=== PATIENT | male | born 1970 | race Caucasian/White ===

== ENCOUNTER 2025-09-20 17:50 | Emergency (ER) | payer SELFPAY ==
[2025-09-20 17:54] VITALS: BP 136/84; PULSE 116; RESP 24; TEMP 37.3; O2SAT 97; BMI 48.6
--- NOTE | 2025-09-20 19:02 | ED.GENADULT ---
HPI - General Adult General Date Seen: 09/20/25 Chief complaint: Shortness of Breath/Dyspnea Stated complaint: Shortness of breath Time Seen by Provider: 09/20/25 18:28 History of Present Illness HPI narrative: Patient is a 55-year-old man here with his for evaluation of shortness of breath. He tells me he 1st started to have trouble with his breathing back in January, when he noted more shortness of breath with exertion as well as wheezing. He was seen at an urgent care and then his primary doctor and was diagnosed as worsening asthma, does have a history of asthma but used an inhaler very sporadically. He says he was given an inhaler to use more regularly and felt improved. In the past couple of months he feels like it is not helping as much. Specifically over the last 3 weeks he has had more of a cough, has felt short of breath and congested in his chest. He does feel that he had an illness associated with this initially although those symptoms are largely improved. He continues to feel congested in his chest. He went to urgent care through [facility] today and had a chest x-ray done and was given prednisone and doxycycline for treatment of bronchitis. He received a call from the urgent care later in the day saying that his x-ray showed possible pulmonary hypertension and he was advised to come to the ER for emergent evaluation. He denies chest pain. He is significantly overweight. Does not smoke. Related Data Home Medications ?Medication ?Instructions ?Recorded ?Confirmed albuterol sulfate 90 mcg/actuation 1 - 2 puff inhalation Q4H PRN 09/20/25 09/20/25 aerosol inhaler wheezing fluticasone 250 mcg-salmeterol 50 1 ea inhalation BID 09/20/25 09/20/25 mcg/dose blistr powdr for inhalation (Wixela Inhub) Previous Rx's ?Medication ?Instructions ?Recorded furosemide 20 mg tablet (Lasix) 20 mg PO DAILY #7 tabs 09/20/25 Allergies Allergy/AdvReac Type Severity Reaction Status Date / Time cat dander Allergy Unknown Verified 09/20/25 18:02 dog dander Allergy Unknown Verified 09/20/25 18:02 grass pollen Allergy Unknown Verified 09/20/25 18:02 nut - unspecified Allergy Unknown Verified 09/20/25 18:02 tree nut Allergy Unknown Verified 09/20/25 18:02 Review of Systems Status of ROS: Reports: 6 or more systems reviewed and unremarkable except as noted in History and below Exam Narrative: Exam Narrative: Vital signs reviewed In general, alert, nontoxic mid age male. Breathing comfortably. Speaks in full sentences. Head: Normocephalic, atraumatic. Eyes: Sclera clear. Pupils equal and reactive. ENT: Mucous membranes moist. Neck: Supple without adenopathy. Heart: Regular rate and rhythm without murmur. Lungs: Diffuse wheezes, occasional rhonchi. No increased work of breathing. Abdomen: Soft, nontender to palpation. Exam limited by body habitus. Extremities: Well perfused, pulses intact. No significant edema. Neurologic: Alert, conversant. Speech fluent, face symmetric. Moves all extremities equally. Skin: Warm, dry well perfused. Affect: Normal. Const: Vital Signs, click to edit/add: Vital Signs - 24 hr 09/20/25 17:54 09/20/25 19:17 09/20/25 19:30 Temperature 99.2 F Pulse Rate 99 96 Pulse Rate [Pulse Oximeter] 116 H Respiratory Rate 24 Blood Pressure [Ri ght Upper Arm] 136/84 Pulse Oximetry 97 96 98 Oxygen Delivery Me thod Room Air 09/20/25 19:45 09/20/25 20:00 Temperature Pulse Rate 95 96 Pulse Rate [Pulse Oximeter] Respiratory Rate Blood Pressure [Ri ght Upper Arm] Pulse Oximetry 97 97 Oxygen Delivery Me thod Course Course ED Course: I reviewed the radiology report from [facility], radiologist notes that the cardiac silhouette is enlarged with fullness of the vasculature suggesting pulmonary venous hypertension. Patient's presentation is certainly consistent with more of a bronchitis picture or asthma exacerbation. I think it is reasonable to give a DuoNeb here as well as prednisone. I will check some basic labs, EKG, and make sure we are not dealing with anything more acute from a cardiac standpoint, rule out PE. Labs are reviewed, notable only for an elevated BNP of 2550. There is no evidence of left-sided heart failure on chest x-ray, but I think the BNP is not unexpected given the suspected diagnosis of pulmonary hypertension. Overall, I think the primary problem right now is probably more related to bronchitis, but discussed with him that the pulmonary hypertension could certainly be contributing to the increased shortness of breath he has noted over the past 6 months. I am going to prescribe some Lasix, discussed that he will need Cardiology follow-up and additional evaluation such as echo. I would recommend that he follow-up with his primary clinic next week so that they can help arrange further cardiology follow-up. Discussed reasons to return. Vital Signs Vital signs: Initial Vital Signs Temperature 99.2 F 09/20/25 17:54 Temperature Source Temporal Artery Scan 09/20/25 17:54 Pulse Rate 116 H 09/20/25 17:54 Respiratory Rate 24 09/20/25 17:54 Blood Pressure 136/84 09/20/25 17:54 Blood Pressure Mean 101 09/20/25 17:54 Blood Pressure Position Sitting 09/20/25 17:54 Pulse Oximetry 97 09/20/25 17:54 Oxygen Delivery Method Room Air 09/20/25 17:54 Vital Signs Temperature 99.2 F 09/20/25 17:54 Pulse Rate 116 H 09/20/25 17:54 Respiratory Rate 24 09/20/25 17:54 Blood Pressure 136/84 09/20/25 17:54 Pulse Oximetry 97 09/20/25 17:54 Oxygen Delivery Method Room Air 09/20/25 17:54 Temperature 99.2 F 09/20/25 17:54 Pulse Rate 96 09/20/25 20:00 Respiratory Rate 24 09/20/25 17:54 Blood Pressure 136/84 09/20/25 17:54 Pulse Oximetry 97 09/20/25 20:00 Oxygen Delivery Method Room Air 09/20/25 17:54 Medications Administered Medications: Discontinued Medications Generic Name Dose Route Start Last Admin Trade Name Andrew PRN Reason Stop Dose Admin Albuterol/Ipratropium 1 neb 09/20/25 18:57 09/20/25 19:28 Iprat-Albut 0.5-2.5 Mg/3 Ml Neb IH 09/20/25 18:58 1 neb ONCE ONE Administration Prednisone 60 mg 09/20/25 18:57 09/20/25 19:26 Prednisone 20 Mg Tablet PO 09/20/25 18:58 60 mg ONCE ONE Administration Medical Decision Making Lab Data Lab results reviewed: Yes I reviewed the patient's lab results Labs: Lab Results 09/20/25 09/20/25 Range/Units 18:58 19:09 WBC 8.98 (4.50-11.00) K/uL RBC 4.89 (4.30-5.90) m/uL Hgb 13.9 (13.5-17.5) gm/dL Hct 42.8 (37.0-53.0) % MCV 88 (80-100) fL MCH 28 (26-34) pg MCHC 33 (32-36) gm/dL RDW Coeff of Carlita 14.2 (11.5-15.5) % Plt Count 203 (140-440) K/uL Neut % (Auto) 71.5 (42.0-72.0) % Lymph % (Auto) 16.1 L (20-44) % Poinsett % (Auto) 8.6 (0.0-11.0) % Eos % (Auto) 3.2 (0.0-7.0) % Baso % (Auto) 0.3 (0.0-3.0) % Neut # (Auto) 6.41 (1.7-7.0) K/uL Lymph # (Auto) 1.40 (0.90-2.90) K/uL [place] # (Auto) 0.80 (0.00-0.90) K/UL Eos # (Auto) 0.29 (0.00-0.50) K/uL Baso # (Auto) 0.03 (0.00-0.30) K/uL Abs Immat Gran (auto) 0.03 (0.00-0.30) K/uL Imm/Tot Granulo (auto) 0.3 % D-Dimer Quant (PE/DVT) 0.29 (0.00-0.50) ug/ml VBG pH 7.433 H (7.32-7.43) VBG pCO2 43 (40-50) mmHG VBG pO2 < 30.1 (25-47) mmHG VBG HCO3 29 H (21-28) mmol/L Sodium 135 (135-149) mmol/L Potassium 4.6 (3.6-5.1) mmol/L Chloride 99 (96-114) mmol/L Carbon Dioxide 28 (20-32) mmol/L Anion Gap 8 (7-15) mEq/L BUN 16 (7-30) mg/dL Creatinine 1.1 (0.5-1.5) mg/dL Estimated Creat Clear 85.24 Estimated GFR 80 ml/min Glucose 113 (60-115) mg/dL Calcium 8.9 (8.4-10.6) mg/dL Total Bilirubin 1.2 (0.1-1.5) mg/dL Direct Bilirubin 0.3 (0.0-0.5) mg/dL AST 29 (12-35) U/L ALT 29 (4-50) U/L Alkaline Phosphatase 73 (40-150) U/L NT-Pro-B Natriuret Pep 2550 H (See Note) pg/mL Total Protein 6.9 (6.0-8.3) g/dL Albumin 4.0 (3.3-5.0) g/dL POC Troponin I 0.02 (0.01-0.04) ng/ml Discharge Plan Discharge Clinical Impression: Bronchitis, Pulmonary hypertension Patient Disposition: Home, Self-Care Condition: Improved Instructions: Acute Bronchitis (ED), Pulmonary Arterial Hypertension (ED) Additional Instructions: Overall, your test tonight are reassuring. There is no evidence of pneumonia, blood clot, or heart attack. I do think you will need Cardiology follow-up, I would make an appointment to see primary care as you will be able to see them in a timely manner and they can help get you followed up with Cardiology. You will need additional evaluation for the finding of pulmonary hypertension suspected on chest x-ray. I am going to put you on a diuretic in the short term. We are also going to take the prednisone that was prescribed earlier today, to help with bronchospasm/bronchitis. I do not think he needs an antibiotic. I would recommend that you use your albuterol every 4 hours for the next couple of days. If you feeling worse, shortness of breath seems to be increasing, or you have new symptoms such as chest pain, high fever, fainting, return to the emergency department. Prescriptions: New furosemide [Lasix] 20 mg tablet 20 mg PO DAILY Qty: 7 2RF No Action fluticasone propion-salmeterol [Wixela Inhub] 250-50 mcg/dose blister with device 1 ea INHALATION BID albuterol sulfate 90 mcg/actuation HFA aerosol inhaler 1 - 2 puff INHALATION Q4H PRN (Reason: wheezing) Follow Up/Referrals: Sukhwinder Shine MD [Primary Care Provider, Family Practice] Stand Alone Forms: MyHealth Info Instructions Procedures ABG Interpretation ABG Results: 09/20/25 19:09 VBG pH 7.433 H VBG pCO2 43 VBG pO2 < 30.1 VBG HCO3 29 H
--- OUTSIDE RECORDS SUMMARY | 2025-09-20 19:09 | XMS_ITS | Clinical Summary ---
Author Organization [facility] Address [address] [place] [id number] Care Team Providers Care Umbrella Tipper Name Role Phone Sukhwinder Shine MD Primary Care Provider [phone] Allergies Active Allergy Reactions Criticality Noted Date Comments Tree Nut Hives 04/20/2007 Pecan Medications CPAP Autotitration cpap 4-20cm of H2O, with accessories dx780.57 1 0 08/05/20 08 Active CPAPIndications: Obstructive sleep apnea (adult) (pediatric) autoCPAP, heated humidifier, mask, headgear, filters and tubing. Pressure: 4-20cm/H2O Length of Need: 99 1 Device 0 07/31/20 15 Active fluticasone propion-salmeter oL (Advair Diskus) 250-50 mcg/Dose diskus inhalerIndicatio ns:Moderate persistent asthma without complication (HC) Inhale 1 Puff by mouth two times daily. 60 Each 5 08/07/20 25 Active Additional Information Patient not taking.Reported on 09/20/2025 albuterol HFA (PRO-AIR; VENTOLIN; PROVENTIL) 90 mcg/actuation inhalerIndicatio ns:Cough, unspecified type,Wheezing Inhale 1-2 Puffs by mouth every 4 hours if needed for Shortness Of Breath or Wheezing. 1 Each 08/07/20 25 Active predniSONE (DELTASONE) 20 mg tabletIndication s:Moderate persistent asthma with (acute) exacerbation (HC),Acute cough,SOB (shortness of breath),Wheezing Take 2 Tablets (40 mg) by mouth once daily for 5 days. 10 Tablet 10/24/ 025 Active doxycycline 100 mg tabletIndication s:Bronchitis Take 1 Tablet (100 mg) by mouth two times daily for 5 days. 10 Tablet 09/20/20 25 025 Active predniSONE (DELTASONE) 20 mg tabletIndication s:Cough, unspecified type,Wheezing TAKE 1 TABLET(20 MG) BY MOUTH DAILY 5 Tablet 08/02/20 25 025 Discontin ued(*Med complete/ Regimen complete/ Level of care change) Active Problems Problem Noted Date Diagnosed Date Encounter for screening colonoscopy 07/18/2023 MATTHEW 05/09/2007; AHI- REM AHI- 34 severe----- AHI overall of 12 07/31/2015 Encounters Date Type Department Care Team Description 09/20/2025 3:20 PM CDT Ancillary Procedure [address] [address] Arrived 09/20/2025 2:40 PM CDT Office Visit [address] [address] Gali Trujillo PA Cough (x2 weeks) 09/20/2025 Travel 08/11/[address] [phone] Sukhwinder Shine MD Refill Request (Albuterol Hfa) 08/07/2025 8:50 AM CDT Office Visit [address] [phone] Sukhwinder Shine MD Follow Up (Urgent Care 07/22/2025 cough) 08/07/2025 Travel 08/01/[address] [phone] Sukhwinder Shine MD Refill Request (Prednisone) 07/25/[address] [phone] Sukhwinder Shine MD Refill Request (Prednisone) 07/22/2025 7:00 PM CDT Ancillary Procedure [facility] [address] [place] [address] 07/22/2025 5:40 PM CDT Office Visit [facility] [address] [place] [phone] Edie Mcclellan NP Cough 07/22/2025 Travel from Last 3 Months Immunizations Immunization Administration Dates Next Due Td, Preservative Free (age >= 7 Years) 6 Family History Medical History Relation Name Comments Diabetes Maternal Grandmother Heart Disease Paternal Grandfather Relation Name Status Comments Daughter Alive Maternal Grandmother Paternal Grandfather Son Alive Social History Tobacco Use Types Packs/Day Years Used Date Smoking Tobacco: Never Smokeless Tobacco: Never Tobacco Cessation:Counseling Given: Yes Alcohol Use Standard Drinks/Week Comments Yes 0 (1 standard drink = 0.6 oz pur e alcohol) occasional PHQ-2 Answer Date Recorded PHQ-2 TOTAL SCORE 0 05/20/2023 Social Connections Answer Date Recorded Frequency of Communication with Friends and Fami ly 0 05/20/2023 Alcohol Use Answer Date Recorded How often do you have a drink containing alcohol ? 1 09/20/2025 How many drinks containing a lcohol do you have on a typical day when you are drinking? 0 09/20/2025 How often do you have five or more drinks on one occasion? 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 Gender Identity Not on file Sexual Orientation Not on file Occupation Industry Job Start Date Job End Date [employer] Not on file Not on file Not on file Obstetrics History Last Filed Vital Signs Vital Sign Reading Time Taken Comments Blood Pressure 122/86 09/20/2025 2:53 PM CDT Pulse 114 09/20/2025 2:53 PM CDT Temperature 37.7 C (99.9 F) 09/20/2025 2:53 PM CDT Respiratory Rate 30 09/20/2025 2:53 PM CDT Oxygen Saturation 98% 09/20/2025 2:53 PM CDT Inhaled Oxygen Concentration - - Weight 164.5 kg (362 lb 11.2 oz) 09/20/2025 2:53 PM CDT Height 182.9 cm (6') 08/07/2025 9:35 AM CDT Body Mass Index 49.19 08/07/2025 9:35 AM CDT Plan of Treatment Health Maintenance Due Date Last Done Comments Hepatitis B series for 19+ ( 1 of 3 - 19+ 3-dose series) 1991 Pneumococcal series for age 50+ (1 of 2 - PCV) 1991 Tetanus booster 09/01/2016 09/01/2006 Zoster (shingles) series for age 50+ (1 of 2) 2022 Depression screening for age 12+ 05/20/2024 05/20/20, 05/20/2023 Influenza Vaccine (#1) 2025 BMI (ht and wt on same day) for age 18+ 08/07/2026 08/07/2025, 05/20/2023, 08/27/2016 Lipids for age 45-75 05/20/2028 05/20/2023, 05/27/20 06 Colonoscopy through age 75 07/18/2033 07/18/2023 RSV vaccine for adults or pr egnancy (1 - 1-dose 75+ series) 2047 HIV for age 15-65 Completed 05/20/2023 Hepatitis C screening for age 18-79 Completed 05/20 Procedures Procedure Name Priority Date/Time Associated Diagnosis Comments XR CHEST 2 VIEWS PA AND LATERAL Routine 09/20/2025 3:25 PM CDT Acute cough XR CHEST 2 VIEWS PA AND LATERAL STAT 07/22/2025 7:06 PM CDT Cough, unspecified type Wheezing COLONOSCOPY 07/18/2023 11:34 AM CDT LC HIV-1/O/2, 4TH GENERATION Routine 05/20/2023 10:09 AM CDT Well adult exam LC HCV ANTIBODY RFX TO QUANT PCR Routine 05/20/2023 10:09 AM CDT Well adult exam LIPID PANEL W REFLEX MEASURED LDL Routine 05/20/2023 10:09 AM CDT Well adult exam from Last 3 Months or Most Recently Relevant to Health Maintenance Results * XR CHEST 2 VIEWS PA AND LATERAL (09/20/2025 3:25 PM CDT) Only the most recent of2 resultswithin the time period is included. Anatomical Region Laterality Modality CHEST, THORAX, Lung, HEART Compu chino Radiography 09/20/2025 3:39 PM CDT Impressions 09/20/2025 3:39 PM CDT Cardiac silhouette enlargement with fullness of the vasculature suggesting pulmonary venous hypertension. Cardiology referral recommended. Dictated by Josias Beckett MD @ 09/20/2025 3:39:48 PM (Electronically Signed) Narrative 09/20/2025 3:39 PM CDT For Patients: As a result of the Cures Act, medical imaging exams and procedure reports are released immediately into your electronic medical record. You may view this report before your referring provider. If you have questions, please contact your health care provider. INDICATION: Acute cough TECHNIQUE: Chest 2 views COMPARISON: 07/22/2025 FINDINGS: Cardiovascular and mediastinum: Cardiac silhouette enlarged. Mild fullness of the pulmonary veins. Lungs and pleural spaces: Lungs are clear. No sign of infiltrate or mass. No sign of pleural effusion. No pneumothorax. Bones and soft tissues: Degenerative changes. Procedure Note Josias Beckett MD - 09/20/2025 For Patients: As a result of the Cures Act, medical imagingexams and procedure reports are released immediately into your electronicmedical record. You may view this report before your referring provider.If you have questions, please contact your health care provider. INDICATION: Acute cough TECHNIQUE: Chest 2 views COMPARISON: 07/22/2025 FINDINGS: Cardiovascular and mediastinum: Cardiac silhouette enlarged. Mildfullness of the pulmonary veins. Lungs and pleural spaces: Lungs are clear. No sign of infiltrate ormass. No sign of pleural effusion. No pneumothorax. Bones and soft tissues: Degenerative changes. IMPRESSION: Cardiac silhouette enlargement with fullness of the vasculature suggestingpulmonary venous hypertension. Cardiology referral recommended. Dictated by Josias Beckett MD @ 09/20/2025 3:39:48 PM (Electronically Signed) [facility] Final Result * COLONOSCOPY (07/18/2023 11:34 AM CDT) 07/18/2023 11:3 4 AM CDT Narrative Transcriptions Helena Smallwood, - 07/27/2023 10:35 PM CDT Patient Name: Ivan Cao Procedure Date: 07/18/2023 Gender: Male Date of : 1970 Admit Type: Ambulatory Procedure: Colonoscopy Proceduralist: Helena Smallwood MD [facility] Referring MD: Sukhwinder Shine Indications/Pre-Op Diagnosis: Screening for colorectal malignant neoplasm, This is the patient's first colonoscopy Medications: Monitored Anesthesia Care Procedure Description: The patient had risks, benefits and alternatives explained to andgave informed consent. The patient had a stable cardiopulmonary status and judged an adequate candidate for conscious sedation. The endoscope [id number] was passed through the anus andadvanced to the cecum, identified by appendiceal orifice and ileocecal valve.The colonoscopy was performed without difficulty. The patient toleratedthe procedure well. The quality of the bowel preparation was good. The ileocecal valve, appendiceal orifice, and rectum were photographed. Complications: No immediate complications. Estimated Blood Loss & Specimen: Estimated blood loss: none. Specimen collected - None Findings: Non-bleeding internal hemorrhoids were found during retroflexion. Impressions/Post-Op Diagnosis: - Non-bleeding internal hemorrhoids. - No specimens collected. Recommendation: - Discharge patient to home. - High fiber diet. - Continue present medications. - Await pathology results. - Repeat colonoscopy in 10 years for screening purposes. Moderate Sedation: Moderate (conscious) sedation was personally administered by an anesthesia professional. The following parameters were monitored:oxygen saturation, heart rate, blood pressure, and response to care. Helena Smallwood MD 07/27/2023 10:35:15 PM This report has been signed electronically. Note Initiated On: 07/18/2023 11:34 AM Helena Smallwood DO PROCEDURE ORD Fi nal Result * LC HCV ANTIBODY RFX TO QUANT PCR (05/20/2023 10:09 AM CDT) HCV Ab Non Reactive Non Reactive 05/25/2023 3:07 AM CDT [facility] Blood BLOOD SPECIMEN / Unknown Venipuncture / Unknown 05/20/2023 10:09 AM CDT 05/20/2023 10:13 AM CDT Narrative [facility] - 05/25/2023 3:07 AM CDT Performed at: [address] [place] [id number] Casey Saw Operator: Iván Romero MD, Phone: [phone] Sukhwinder Shine MD LABORATORY Final Resul t Performing Organization Address City/[facility]/ZIP Co de Phone Number [facility] ([facility]) [address] [place] [address], * LC HIV-1/O/2, 4TH GENERATION (05/20/2023 10:09 AM CDT) [facility] HIV Scr 4th Gen Non Reactive Non Reactive 05/25/2023 1:[address] [facility] ([facility] Comment: HIV Negative HIV-1/HIV-2 antibodies and HIV-1 p24 antigen were NOT detected. There is no laboratory evidence of HIV infection. Blood BLOOD SPECIMEN / Unknown Venipuncture / Unknown 05/20/2023 10:09 AM CDT 05/20/2023 10:13 AM CDT Narrative [facility] - 05/25/2023 1:08 AM CDT Performed at: [address] [place] [id number] Casey Saw Operator: Iván Romero MD, Phone: [phone] Sukhwinder Shine MD LABORATORY Final Resul t Performing Organization Address City/[facility]/ZIP Co de Phone Number [facility] [address] [place] [address], * (ABNORMAL) LIPID PANEL W REFLEX MEASURED LDL (05/20/2023 10:09 AM CDT) [facility] CHOLESTEROL,TOTAL 206(H) 100 - 199 mg/dL 05/20/2023 11:24 AM CDT [facility] TRIGLYCERIDES 191(H) <150 mg/dL 05/20/2023 11:24 AM CDT [facility] HDL CHOLESTEROL 28(L) >40 mg/dL 11:24 AM T [facility] NON-HDL CHOLESTEROL 178(H) <145 mg/dl 05/20/2023 11:24 AM T [facility] CHOL/HDL RATIO 7.36(H) <4.50 05/20/2023 11:24 AM CDT [facility] LDL CHOLESTEROL 140(H) <=130 mg/dL 05/20/2023 11:24 AM CDT [facility] VLDL CHOLESTEROL 38(H) <=30 mg/dL 05/20/2023 11:24 AM CDT [facility] PROVIDER ORDERED STATUS RANDOM 05/20/2023 11:24 AM CDT [facility] Blood BLOOD SPECIMEN / Unknown Venipuncture / Unknown 05/20/2023 10:09 AM CDT 05/20/2023 10:13 AM CDT us Sukhwinder Shine MD CHEMISTRY Final Resul t [facility] [address] [place] [address] from Last 3 Months or Most Recently Relevant to Health Maintenance Insurance [employer] Advance Directives * Full Code (Latest Code Status on File) Date Activated Date Inactivated Comments 07/18/2023 10:18 AM 07/18/2023 2:51 PM Question Answer Comments Code Status Discussion: Discussed Care Teams Umbrella Tipper Relationship Specialty Start Date End Date Sukhwinder Shine MD [address] [place] [address] PCP - General Family Practice 06/23/22
[2025-09-20 19:13] LABS: HCO3 VBG 29 mmol/L (21-28); PCO2 VBG 43 mmHG (40-50); PO2 VBG < 30.1 mmHG (25-47); pH VBG 7.433 (7.32-7.43)
[2025-09-20 19:15] LABS: Hematocrit* 42.8 % (37.0-53.0); Hemoglobin* 13.9 gm/dL (13.5-17.5); Immature Granulocytes Abs Auto 0.03 K/uL (0.00-0.30); Immature Granulocytes Pct Auto 0.3 %; Mean Corpuscular HGB Conc 33 gm/dL (32-36); Mean Corpuscular Hemoglobin 28 pg (26-34); Mean Corpuscular Volume 88 fL (80-100); RDW Coefficient of Variation % 14.2 % (11.5-15.5); Red Blood Count* 4.89 m/uL (4.30-5.90); White Blood Count* 8.98 K/uL (4.50-11.00)
[2025-09-20 19:17] VITALS: PULSE 99; O2SAT 96
[2025-09-20 19:23] LABS: Lymphocytes Absolute Auto 1.40 K/uL (0.90-2.90); Slide Review Reflex No
[2025-09-20 19:25] LABS: Troponin, Point-of-Care* 0.02 ng/ml (0.01-0.04)
[2025-09-20] MEDS: IPRAT-ALBUT 0.5-2.5 MG/3 ML NEB 1 NEB IH (19:28)
[2025-09-20 19:30] VITALS: PULSE 96; O2SAT 98
[2025-09-20 19:36] LABS: Albumin* 4.0 g/dL (3.3-5.0); Chloride* 99 mmol/L (96-114); Potassium* 4.6 mmol/L (3.6-5.1); Sodium* 135 mmol/L (135-149)
[2025-09-20 19:39] LABS: Alanine Aminotransferase* 29 U/L (4-50); Alkaline Phosphatase* 73 U/L (40-150); Anion Gap 8 mEq/L (7-15); Aspartate Amino Transferase* 29 U/L (12-35); Bilirubin Direct* 0.3 mg/dL (0.0-0.5); Bilirubin Total* 1.2 mg/dL (0.1-1.5); Blood Urea Nitrogen* 16 mg/dL (7-30); Calcium* 8.9 mg/dL (8.4-10.6); Carbon Dioxide* 28 mmol/L (20-32); Creatinine* 1.1 mg/dL (0.5-1.5); Est. Creatinine Clearance* 85.24; Estimated Glomerular Filt Rate 80 ml/min; Glucose* 113 mg/dL (60-115)
[2025-09-20 19:40] LABS: Total Protein* 6.9 g/dL (6.0-8.3)
[2025-09-20 19:41] LABS: D Dimer Quantitative* 0.29 ug/ml (0.00-0.50)
[2025-09-20 19:45] VITALS: PULSE 95; O2SAT 97
[2025-09-20 19:50] LABS: NT Pro B Type NatriureticPept* 2550 pg/mL (See Note)
[2025-09-20 20:00] VITALS: PULSE 96; O2SAT 97
[2025-09-20 20:15] VITALS: PULSE 94; O2SAT 97
== END 2025-09-20 20:40 | disposition home or self-care (01) ==
PROVIDERS: Emergency Provider Emergency Medicine; PCP Family Medicine
DX: J20.9 Acute bronchitis, unspecified (principal); I27.20 Pulmonary hypertension, unspecified
CPT/HCPCS: 36415; 80048; 80076; 82803; 83880; 84484; 85025; 85379; 93005; 94761; 99284; 99285; J7512